=== PATIENT | female | born 1970 | race African-American/Black ===

== ENCOUNTER 2016-08-09 12:34 | Emergency (ER) | payer MEDICARE, MEDICAID ==
[~2016-08-09 12:34] MED LIST: AMBIEN10 M1 PO; AMBIEN5 MG PO; AMOXICILLIN875 M1 PO; ANTI-ITCH28 GM TP; ANUSOL OINTMENT30 G1 RC; ARTIFICIAL TEAR15 M OP; ASPERCREME TP; ASPIRIN ENTERI325 MG PO; ASPIRIN81 MG PO; ATIVAN0.5 MG PO; ATORVASTATIN CA80 M1 PO; AUGMENTIN 875-1 EAC2 PO; AZASAN100 MG PO; AZASAN75 MG PO; AZATHIOPRINE50 MG PO; BACTRIM DS TAB1 EAC2 PO; BELSOMRA; BELSOMRA10 MG PO; BENADRYL25 M3 PO; BENADRYL25 MG PO; BENTYL10 M1 PO; BENTYL20 M1 PO; BENTYL20 MG PO; BIAXIN PO; BP MED PO; BUMETANIDE1 MG PO; BUTRANS1 EAC3 TD; CALCIUM 500 +1 EAC4 PO; CALCIUM PO; CATAPRES0.1 M1 PO; CELEXA20 M1 PO; CEPHALEXIN250 M1; CIPRO500 M2 PO; CIPROFLOXACIN500 M3; CITRATE OF MAG300 ML PO; CLINDAMYCIN HC300 M2 PO; COLACE100 M1 PO; COLACE100 MG PO; COLESTID1 GM PO; COMPAZINE10 M PO; COUMADIN10 MG PO; COUMADIN7.5 MG PO; CPAP; CULTURELLE1 EAC1 PO; CVS STOOL SOFTE PO; CYCLOBENZAPRINE5 M1 PO; CYMBALTA30 M1 PO; CYTOMEL25 MCG PO; CYTOMEL5 MCG PO; DELTASONE10 MG PO; DEPAKOTE D500 MG/TA1 PO; DEPAKOTE ER500 M1 PO; DEPAKOTE ER500 MG PO; DEPAKOTE125 M1 PO; DEPAKOTE125 MG PO; DEPAKOTE500 MG PO; DIAZEPAM5 MG/5 M2 PO; DIFLUCAN150 M1 PO; DILANTIN100 MG PO; DIVALPROEX SOD PO; DOXYCYCLINE HY100 M3 PO; DURAGESIC1 EA10 TOP; DURAGESIC1 EAC4 TD; ELAVIL50 MG PO; ENDOCET1 EA PO; ENULOSE PO; EPIPEN0.3 MG/0.1 IM; ERY-TAB250 M1 PO; ESCITALOPRAM OX10 M1 PO; EVOXAC30 MG PO; FLEXERIL10 MG PO; FLEXERIL5 M1 PO; FOLIC ACID1 MG PO; FUROSEMIDE20 M1 PO; GABAPENTIN100 M1 PO; GABAPENTIN300 M1 PO; GLUCOPHAGE500 M3 PO; GLUCOPHAGE500 MG/TA1 PO; Gabapentin PO; H PO; HUMALOG100 U/ML SQ; HUMALOG100 UNIT/2 SC; HUMALOG100 UNITS/; HYDROCHLOROTH12.5 M1 PO; HYDROCHLOROTH12.5 M3 PO; HYDROCHLOROTH12.5 MG PO; HYDROCHLOROTHIA25 M1 PO; HYDROCHLOROTHIA25 MG PO; HYDROCHLOROTHIAZ1 GM; HYDROCHLOROTHIAZIDE PO; HYDROCODON-ACE1 EA16 PO; HYDROCODON-ACE1 EAC7 PO; HYDROCODON-ACE1 EAC8 PO; HYDROCODON-ACET15 M1 PO; HYDROCODONE/APA1 TAB PO; HYDROXYZINE PA100 M1 PO; IBUPROFEN400 M1 PO; IBUPROFEN800 MG PO; IMITREX100 M1 PO; IMURAN50 MG PO; K-DUR20 ME1 PO; K-DUR20 ME2 PO; KEFLEX PO; KEFLEX500 M4 PO; KEPPRA1000 M1 PO; KEPPRA250 M1 PO; KEPPRA250 MG PO; KEPPRA500 M1 PO; KEPPRA500 M3 PO; KEPPRA750 M1 PO; KLONOPIN0.5 M1 PO; LAMISIL250 MG PO; LANTUS100 U/ML SC; LANTUS100 UNITS/ SC; LEVAQUIN500 M1 PO; LEVEMIR100 UNITS/ SC; LEVOTHROID112 MCG PO; LEVOTHROID150 MC1 PO; LEVOTHROID150 MCG PO; LEVOTHROID175 MCG PO; LEVOTHROID75 MCG PO; LEVOTHYROXINE125 MCG PO; LEVOTHYROXINE150 MC3 PO; LEVOTHYROXINE175 MC2 PO; LEVOTHYROXINE25 MC3 PO; LEXAPRO10 MG PO; LIDODERM1 EACH TP; LIDODERM700 MG TOP; LIDODERM700 MG TP; LISINOPRIL-HCT1 EAC3 PO; LISINOPRIL-HCTZ1 TAB PO; LISINOPRIL10 M1 PO; LISINOPRIL10 MG PO; LISINOPRIL5 M1 PO; LOMOTIL TABLET1 TAB PO; LOPRESSOR25 MG/TA2 PO; LORTAB 7.5/5001 EA PO; LOVENOX100 MG/ SQ; LOVENOX100 MG/ML SQ; LUNESTA3 M1 PO; MACROBID 100 M100 M1 PO; MACRODANTIN100 M1 PO; MARINOL5 M1 PO; MELOXICAM15 M1 PO; METFORMIN HCL500 M2 PO; METHOTREXATE2.5 MG PO; MILK OF MA400 MG/5 M PO; MINOCYCLINE HC100 MG PO; MIRALAX17 G1 PO; MIRALAX17 G2 PO; MIRAPEX ER0.375 MG PO; MIRAPEX1 MG PO; MOTRIN800 MG PO; NEURONTIN300 M1 PO; NEURONTIN300 MG PO; NEURONTIN600 M1 PO; NITROFURANTOIN100 MG PO; NORCO 10/325 TA1 TAB PO; NORCO 5-325 TA1 EACH PO; NORCO 5/325 TAB1 TAB PO; NORCO 5/3251 TA1 PO; NORCO 5/3251 TA2 PO; NORCO 5/3251 TAB PO; NORCO 7.5/3251 TA3 PO; NORVASC10 M1 PO; NORVASC5 MG PO; NOVOLIN N100 UNIT/1 SQ; NOVOLOG FL100 UNIT/2 SC; NOVOLOG100 U/M SQ; NOVOLOG100 UNITS/ SC; NYSTATIN60 ML PO; OMEPRAZOLE20 M2 PO; OMEPRAZOLE20 M4 PO; OMEPRAZOLE40 M2 PO; OPANA ER15 M1 PO; OPANA10 M1 PO; OS-CAL 500+D TA1 TAB PO; OXYCODONE HCL15 M1 PO; OXYCODONE HCL20 M3 PO; OXYCODONE HCL5 M1 PO; OXYCODONE/APAP PO; OXYCONTIN15 M1 PO; OYSTER CALCIUM500 MG PO; PAROXETINE HCL10 M2 PO; PATCH REMOVAL; PERCOCET 10-321 EACH PO; PERCOCET 10/31 UDTAB PO; PERCOCET 5/3251 TAB PO; PERCOCET 5MG/AP1 TA1 PO; PERCOCET 5MG/AP1 TAB PO; PHENERGAN25 M1 PO; PHENERGAN25 M2 RC; PHENERGAN25 M4 RC; PHENERGAN25 MG PO; PHENERGAN25 MG/TAB PO; PHENYTOIN PO; PHENYTOIN SODI100 PO; PREDNISONE10 M1 PO; PREDNISONE10 MG PO; PREDNISONE2.5 MG PO; PREDNISONE20 M1 PO; PREDNISONE20 MG PO; PREDNISONE5 MG PO; PRILOSEC20 MG PO; PROAIR HFA8.5 GM IH; PROAIR RESPICL90 MCG INH; PROMETHAZI6.25 MG/3 PO; PROMETHAZINE HC25 M3 PO; PROMETHAZINE25 MG PO; PROTONIX20 MG PO; PROTONIX40 M1 PO; PROVENTIL HFA6.7 G1 INH; PYRIDIUM200 M2 PO; REGLAN10 MG PO; REQUIP0.25 MG PO; REQUIP2 M1 PO; RESTORIL15 MG PO; ROBAXIN-750750 M1 PO; ROCALTROL0.25 MCG PO; ROXICODONE PO; ROXICODONE5 M2 PO; SEIZURE MED; SENNA-DOCUSATE1 EAC1 PO; SENOKOT-S TABLE1 TAB PO; SEROQUEL25 MG PO; SKELAXIN800 M1 PO; SULFAMETHOXAZO473 ML PO; SYNTHROID100 MCG PO; SYNTHROID112 MCG PO; SYNTHROID150 MCG PO; SYNTHROID175 MC1 PO; TAMIFLU75 MG/CAP PO; TEGRETOL200 MG PO; TOPROL XL50 MG PO; TRAMADOL HCL200 MG PO; TRANSDERM-SCOP1 EACH TD; TUMS200 MG PO; TYLENOL #31 TA1 PO; TYLENOL EXTRA500 M1 PO; TYLENOL325 MG PO; TYLENOL500 MG PO; ULTRAM50 MG PO; VALIUM2 M1 PO; VALIUM5 M1 PO; VENTOLIN HFA18 G2 IH; VICODIN 5/500 T1 TAB PO; VIMPAT50 MG PO; VISTARIL25 M1 PO; VITAMIN D250000 UNI1 PO; XARELTO20 MG PO; XTAMPZA ER36 MG PO; ZESTORETIC 10-1 EAC1 PO; ZESTRIL10 MG PO; ZESTRIL20 M1 PO; ZESTRIL20 M3 PO; ZETIA10 M1 PO; ZITHROMAX250MG Z-PAK PO; ZOCOR20 MG PO; ZOFRAN ODT; ZOFRAN ODT4 MG PO; ZOFRAN ODT4 MG/UDTAB PO; ZOFRAN ODT8 MG PO; ZOFRAN ODT8 MG/TAB PO; ZOFRAN4 M1 PO; ZOFRAN4 M2 PO; ZOFRAN4 MG PO; ZOFRAN8 M1 PO; ZOFRAN8 MG PO; ZYRTEC10 M7 PO; ZYRTEC10 MG PO; ZYRTEC1010 PO; [UNRECOGNIZED DRUG - OTHER]; [UNRECOGNIZED DRUG - OTHER] OP; [UNRECOGNIZED DRUG - OTHER] PO; [UNRECOGNIZED DRUG - OTHER] PO
[2016-08-09 13:21] LABS: BASO % 1.9 % (0-2); BASO ABSOLUTE COUNT 0.1 tho/cmm (0.0-0.2); EOSINOPHIL ABSOLUTE COUNT 0.4 tho/cmm (0.0-0.7); HGB-HEMOGLOBIN 10.3 gm/dl (12.0-15.5); IMMATURE GRANULOCYTES ABSOLUTE 0.01 tho/cmm (0-0.03); IMMATURE GRANULOCYTES PERCENT 0.2 % (0-0.3); LYMPH % 33.4 % (20-45); LYMPH ABSOLUTE COUNT 1.9 tho/cmm (0.8-4.5); MCH (MEAN CORPUSCULAR HGB) 23.9 pg (28.0-32.0); MCHC MEAN CORPUSCULAR HGB CONC 32.2 % (32.0-36.0); MCV (MEAN CELL VOLUME) 74.2 fl (82.0-96.0); MEAN PLATELET VOLUME 8.3 cmc (9.4-12.4); MONO % 8.9 % (0-12); MONOCYTE ABSOLUTE COUNT 0.5 tho/cmm (0.0-1.2); NEUTROPHIL ABSOLUTE COUNT 2.8 tho/cmm (1.6-8.0); NEUTROPHIL-AUTOMATED 2.8 tho/cmm (1.6-8.0); NEUTROPHILS % 48.6 % (40-80); PLATELET COUNT 272 tho/cmm (150-450); RED BLOOD COUNT 4.31 mil/cmm (4.00-5.20); RED CELL DISTRIBUTION WIDTH 19.7 % (12.4-16.4); WHITE BLOOD COUNT 5.8 tho/cmm (4.0-10.0)
[2016-08-09 13:40] LABS: ANION GAP 13 mmol/L (0-20); BLOOD UREA NITROGEN 9 mg/dl (6-24); CALCIUM 8.9 mg/dl (8.5-10.5); CARBON DIOXIDE-VENOUS 24 mmol/L (22-32); CHLORIDE 108 mmol/l (96-110); CREATININE 0.74 mg/dl (0.50-1.10); POTASSIUM 3.7 mmol/L (3.7-5.1); SODIUM 141 mmol/L (135-145); eGFR VALUE FOR BLACK >60 mL/Min
[2016-08-09 13:43] LABS: GLUCOSE 70 mg/dL (70-110)
[2016-08-09] MEDS ORDERED: TOPROL XL50 M1 PO (14:03)
[2016-08-09] MEDS ORDERED: ZOFRAN4 M2 PO (14:03)
[2016-08-09] MEDS ORDERED: KEPPRA100 MG/1 M PO (14:04)
[2016-08-09] MEDS ORDERED: NEURONTIN250 MG/51 PO (14:04)
[2016-08-09] MEDS ORDERED: PROAIR HFA8.5 GM INH (14:04)
[2016-08-09] MEDS ORDERED: LOPERAMIDE2 M2 PO (14:05)
[2016-08-09] MEDS ORDERED: OXYCODONE HCL15 M1 PO (14:06)
[2016-08-09] MEDS ORDERED: NORTRIPTYL10 MG/5 ML PO (14:07)
[2016-08-09] MEDS ORDERED: DIAZEPAM 1 MG/ML PO (14:08)
[2016-08-09] MEDS ORDERED: HUMALOG100 UNIT/2 SC (14:28)
[2016-08-09] MEDS ORDERED: ZYRTEC10 M7 PO (14:29)
[2016-08-09] MEDS ORDERED: CATAPRES0.3 M1 PO (14:47)
[2017-01-20] MEDS ORDERED: VITAMIN D250000 UNI1 PO (13:45)
[2017-01-20] MEDS ORDERED: NORVASC10 M2 PO (13:45)
[2017-01-20] MEDS ORDERED: MARINOL5 M1 PO (13:45)
[2017-01-20] MEDS ORDERED: MIRTAZAPINE7.5 M1 PO (13:46)
== END 2016-08-09 15:52 ==
LOC: EDMED 12:34
PROVIDERS: Emergency Medicine
DX: R07.89 Other chest pain (principal); R10.9 Unspecified abdominal pain; G89.29 Other chronic pain; E11.9 Type 2 diabetes mellitus without complications; I10 Essential (primary) hypertension; E78.5 Hyperlipidemia, unspecified; F41.9 Anxiety disorder, unspecified; R11.2 Nausea with vomiting, unspecified; F32.9 Major depressive disorder, single episode, unspecified; Z79.899 Other long term (current) drug therapy; Z79.51 Long term (current) use of inhaled steroids
CPT/HCPCS: J1170; J1200; J2405; J7030

== ENCOUNTER 2016-08-27 09:23 | Emergency (ER) | payer MEDICARE, MEDICAID ==
[~2016-08-27 09:23] MED LIST changes: +CATAPRES0.3 M1 PO; +DIAZEPAM 1 MG/ML PO; +KEPPRA100 MG/1 M PO; +LOPERAMIDE2 M2 PO; +NEURONTIN250 MG/51 PO; +NORTRIPTYL10 MG/5 ML PO; +PROAIR HFA8.5 GM INH; +TOPROL XL50 M1 PO
[2016-08-27 10:26] LABS: BASO % 1.9 % (0-2); BASO ABSOLUTE COUNT 0.1 tho/cmm (0.0-0.2); EOS % 9.7 % (0-7); EOSINOPHIL ABSOLUTE COUNT 0.6 tho/cmm (0.0-0.7); HCT-HEMATOCRIT 34.4 % (34.0-49.0); HGB-HEMOGLOBIN 10.9 gm/dl (12.0-15.5); LYMPH % 29.1 % (20-45); LYMPH ABSOLUTE COUNT 1.8 tho/cmm (0.8-4.5); MCH (MEAN CORPUSCULAR HGB) 23.3 pg (28.0-32.0); MCHC MEAN CORPUSCULAR HGB CONC 31.7 % (32.0-36.0); MCV (MEAN CELL VOLUME) 73.5 fl (82.0-96.0); MEAN PLATELET VOLUME 8.4 cmc (9.4-12.4); MONO % 9.1 % (0-12); MONOCYTE ABSOLUTE COUNT 0.6 tho/cmm (0.0-1.2); NEUTROPHIL ABSOLUTE COUNT 3.1 tho/cmm (1.6-8.0); NEUTROPHIL-AUTOMATED 3.1 tho/cmm (1.6-8.0); NEUTROPHILS % 50.2 % (40-80); PLATELET COUNT 316 tho/cmm (150-450); RED BLOOD COUNT 4.68 mil/cmm (4.00-5.20); RED CELL DISTRIBUTION WIDTH 19.5 % (12.4-16.4); WHITE BLOOD COUNT 6.2 tho/cmm (4.0-10.0)
[2016-08-27 10:48] LABS: ALB/GLOB RATIO 0.7 (0.8-2.0); ALKALINE PHOSPHATASE 180 U/L (33-138); ALT/SGPT 20 U/L (12-78); ANION GAP 11 mmol/L (0-20); AST/SGOT 21 U/L (10-40); BILIRUBIN,DIRECT <0.1 mg/dl (0.0-0.3); BILIRUBIN,INDIRECT 0.2 mg/dL (0.0-1.0); BILIRUBIN,TOTAL 0.3 mg/dl (0-1.5); BLOOD UREA NITROGEN 8 mg/dl (6-24); CARBON DIOXIDE-VENOUS 28 mmol/L (22-32); CHLORIDE 104 mmol/l (96-110); CREATININE 0.85 mg/dl (0.50-1.10); GLUCOSE 87 mg/dL (70-110); LIPASE 86 U/L (73-393); POTASSIUM 3.5 mmol/L (3.7-5.1); SODIUM 139 mmol/L (135-145); eGFR VALUE FOR BLACK >90 mL/Min
[2017-01-20] MEDS ORDERED: VITAMIN D250000 UNI1 PO (13:45)
[2017-01-20] MEDS ORDERED: MARINOL5 M1 PO (13:45)
[2017-01-20] MEDS ORDERED: NORVASC10 M2 PO (13:45)
[2017-01-20] MEDS ORDERED: MIRTAZAPINE7.5 M1 PO (13:46)
== END 2016-08-27 13:18 ==
LOC: EDMED 09:23
PROVIDERS: Emergency Medicine
DX: I10 Essential (primary) hypertension (principal); R07.9 Chest pain, unspecified; R10.9 Unspecified abdominal pain; E11.9 Type 2 diabetes mellitus without complications; E03.9 Hypothyroidism, unspecified; Z86.711 Personal history of pulmonary embolism; Z90.710 Acquired absence of both cervix and uterus; Z90.49 Acquired absence of other specified parts of digestive tract; Z90.89 Acquired absence of other organs; Z79.4 Long term (current) use of insulin; Z79.890 Hormone replacement therapy; Z79.899 Other long term (current) drug therapy; Z87.891 Personal history of nicotine dependence
CPT/HCPCS: J1885; J2405

== ENCOUNTER 2016-09-11 11:34 | Emergency (ER) | payer MEDICARE, MEDICAID ==
[2016-09-11 12:25] LABS: BASO % 0.9 % (0-2); BASO ABSOLUTE COUNT 0.1 tho/cmm (0.0-0.2); EOS % 6.4 % (0-7); EOSINOPHIL ABSOLUTE COUNT 0.4 tho/cmm (0.0-0.7); HCT-HEMATOCRIT 32.9 % (34.0-49.0); HGB-HEMOGLOBIN 10.7 gm/dl (12.0-15.5); IMMATURE GRANULOCYTES ABSOLUTE 0.01 tho/cmm (0-0.03); IMMATURE GRANULOCYTES PERCENT 0.2 % (0-0.3); LYMPH % 29.6 % (20-45); LYMPH ABSOLUTE COUNT 1.7 tho/cmm (0.8-4.5); MCH (MEAN CORPUSCULAR HGB) 23.8 pg (28.0-32.0); MCHC MEAN CORPUSCULAR HGB CONC 32.5 % (32.0-36.0); MCV (MEAN CELL VOLUME) 73.1 fl (82.0-96.0); MEAN PLATELET VOLUME 8.1 cmc (9.4-12.4); MONO % 6.8 % (0-12); MONOCYTE ABSOLUTE COUNT 0.4 tho/cmm (0.0-1.2); NEUTROPHIL ABSOLUTE COUNT 3.2 tho/cmm (1.6-8.0); NEUTROPHIL-AUTOMATED 3.2 tho/cmm (1.6-8.0); NEUTROPHILS % 56.1 % (40-80); PLATELET COUNT 235 tho/cmm (150-450); WHITE BLOOD COUNT 5.8 tho/cmm (4.0-10.0)
[2016-09-11 12:59] LABS: ALB/GLOB RATIO 0.8 (0.8-2.0); ALKALINE PHOSPHATASE 200 U/L (33-138); ALT/SGPT 27 U/L (12-78); ANION GAP 13 mmol/L (0-20); AST/SGOT 22 U/L (10-40); BILIRUBIN,TOTAL 0.3 mg/dl (0-1.5); BLOOD UREA NITROGEN 6 mg/dl (6-24); CALCIUM 8.8 mg/dl (8.5-10.5); CARBON DIOXIDE-VENOUS 26 mmol/L (22-32); CHLORIDE 105 mmol/l (96-110); GLUCOSE 93 mg/dL (70-110); LIPASE 104 U/L (73-393); POTASSIUM 3.6 mmol/L (3.7-5.1); SODIUM 140 mmol/L (135-145); eGFR VALUE FOR BLACK >90 mL/Min
[2016-09-11] MEDS ORDERED: ZOFRAN ODT4 MG PO (13:46)
[2017-01-20] MEDS ORDERED: MARINOL5 M1 PO (13:45)
[2017-01-20] MEDS ORDERED: VITAMIN D250000 UNI1 PO (13:45)
[2017-01-20] MEDS ORDERED: NORVASC10 M2 PO (13:45)
[2017-01-20] MEDS ORDERED: MIRTAZAPINE7.5 M1 PO (13:46)
== END 2016-09-11 14:25 ==
LOC: EDMED 11:34
PROVIDERS: Emergency Medicine
DX: D86.9 Sarcoidosis, unspecified (principal); R11.2 Nausea with vomiting, unspecified; R19.7 Diarrhea, unspecified; E11.9 Type 2 diabetes mellitus without complications; I10 Essential (primary) hypertension; Z90.89 Acquired absence of other organs; Z90.49 Acquired absence of other specified parts of digestive tract; Z98.890 Other specified postprocedural states; Z79.4 Long term (current) use of insulin; Z79.899 Other long term (current) drug therapy
CPT/HCPCS: J1200; J2405; J7030

== ENCOUNTER 2016-09-17 11:30 | Emergency (ER) | payer MEDICARE, MEDICAID ==
[2016-09-17] MEDS ORDERED: FLUCONAZOLE150 M2 PO (12:02)
[2016-09-17] MEDS ORDERED: VITAMIN D250000 UNI1 PO (12:12)
[2016-09-17] MEDS ORDERED: DICYCLOMINE HCL20 M1 PO (12:13)
[2016-09-17] MEDS ORDERED: HUMALOG100 UNIT/2 SC (12:14)
[2016-09-17] MEDS ORDERED: PRINIVIL20 M1 PO (12:14)
[2016-09-17 12:25] LABS: BASO % 0.7 % (0-2); BASO ABSOLUTE COUNT 0.1 tho/cmm (0.0-0.2); EOS % 4.3 % (0-7); EOSINOPHIL ABSOLUTE COUNT 0.4 tho/cmm (0.0-0.7); HCT-HEMATOCRIT 32.3 % (34.0-49.0); HGB-HEMOGLOBIN 10.4 gm/dl (12.0-15.5); IMMATURE GRANULOCYTES ABSOLUTE 0.02 tho/cmm (0-0.03); IMMATURE GRANULOCYTES PERCENT 0.2 % (0-0.3); LYMPH % 16.3 % (20-45); LYMPH ABSOLUTE COUNT 1.7 tho/cmm (0.8-4.5); MCH (MEAN CORPUSCULAR HGB) 23.7 pg (28.0-32.0); MCHC MEAN CORPUSCULAR HGB CONC 32.2 % (32.0-36.0); MCV (MEAN CELL VOLUME) 73.6 fl (82.0-96.0); MEAN PLATELET VOLUME 8.3 cmc (9.4-12.4); MONO % 6.4 % (0-12); MONOCYTE ABSOLUTE COUNT 0.7 tho/cmm (0.0-1.2); NEUTROPHIL ABSOLUTE COUNT 7.4 tho/cmm (1.6-8.0); NEUTROPHIL-AUTOMATED 7.4 tho/cmm (1.6-8.0); NEUTROPHILS % 72.1 % (40-80); PLATELET COUNT 300 tho/cmm (150-450); RED BLOOD COUNT 4.39 mil/cmm (4.00-5.20); WHITE BLOOD COUNT 10.2 tho/cmm (4.0-10.0)
[2016-09-17 12:48] LABS: ALB/GLOB RATIO 0.9 (0.8-2.0); ALBUMIN 3.2 g/dl (3.5-5.0); ALKALINE PHOSPHATASE 167 U/L (33-138); ALT/SGPT 18 U/L (12-78); ANION GAP 11 mmol/L (0-20); AST/SGOT 18 U/L (10-40); BILIRUBIN,TOTAL 0.3 mg/dl (0-1.5); BLOOD UREA NITROGEN 9 mg/dl (6-24); CALCIUM 8.5 mg/dl (8.5-10.5); CARBON DIOXIDE-VENOUS 26 mmol/L (22-32); CHLORIDE 108 mmol/l (96-110); CREATININE 0.89 mg/dl (0.50-1.10); GLUCOSE 91 mg/dL (70-110); POTASSIUM 3.5 mmol/L (3.7-5.1); SODIUM 141 mmol/L (135-145); eGFR VALUE FOR BLACK 89 mL/Min
[2016-09-17 13:03] LABS: PROCALCITONIN <0.05 ng/ml (0.05-0.09)
[2016-09-17 14:15] LABS: URINE APPEARANCE CLEAR; URINE BILIRUBIN NEGATIVE (NEG); URINE BLOOD NEGATIVE (NEG); URINE COLOR YELLOW; URINE GLUCOSE (UA) NEGATIVE (NEG); URINE KETONE NEGATIVE (NEG); URINE LEUKOCYTE ESTERASE NEGATIVE (NEG); URINE NITRITE NEGATIVE (NEG); URINE PROTEIN NEGATIVE (NEG); URINE SPECIFIC GRAVITY 1.015 (1.003-1.030)
[2017-01-20] MEDS ORDERED: VITAMIN D250000 UNI1 PO (13:45)
[2017-01-20] MEDS ORDERED: NORVASC10 M2 PO (13:45)
[2017-01-20] MEDS ORDERED: MARINOL5 M1 PO (13:45)
[2017-01-20] MEDS ORDERED: MIRTAZAPINE7.5 M1 PO (13:46)
== END 2016-09-17 14:24 ==
LOC: EDMED 11:30
PROVIDERS: Emergency Medicine
DX: R07.89 Other chest pain (principal); R10.9 Unspecified abdominal pain; G89.29 Other chronic pain; B34.9 Viral infection, unspecified; I10 Essential (primary) hypertension; E07.9 Disorder of thyroid, unspecified; F32.9 Major depressive disorder, single episode, unspecified; G40.909 Epilepsy, unspecified, not intractable, without status epilepticus; K21.9 Gastro-esophageal reflux disease without esophagitis; Z87.442 Personal history of urinary calculi; Z90.710 Acquired absence of both cervix and uterus; Z90.89 Acquired absence of other organs; Z86.711 Personal history of pulmonary embolism; Z79.4 Long term (current) use of insulin; Z79.890 Hormone replacement therapy; Z79.899 Other long term (current) drug therapy; Z87.891 Personal history of nicotine dependence
CPT/HCPCS: J2405; J7030

== ENCOUNTER 2016-10-03 14:32 | Emergency (ER) | payer MEDICARE, MEDICAID ==
[~2016-10-03 14:32] MED LIST changes: +DICYCLOMINE HCL20 M1 PO; +FLUCONAZOLE150 M2 PO; +PRINIVIL20 M1 PO
[2016-10-03 15:28] LABS: BASO % 1.2 % (0-2); BASO ABSOLUTE COUNT 0.1 tho/cmm (0.0-0.2); EOS % 7.1 % (0-7); EOSINOPHIL ABSOLUTE COUNT 0.5 tho/cmm (0.0-0.7); HGB-HEMOGLOBIN 10.8 gm/dl (12.0-15.5); IMMATURE GRANULOCYTES ABSOLUTE 0.01 tho/cmm (0-0.03); IMMATURE GRANULOCYTES PERCENT 0.2 % (0-0.3); LYMPH % 25.7 % (20-45); LYMPH ABSOLUTE COUNT 1.7 tho/cmm (0.8-4.5); MCH (MEAN CORPUSCULAR HGB) 23.7 pg (28.0-32.0); MCHC MEAN CORPUSCULAR HGB CONC 32.7 % (32.0-36.0); MCV (MEAN CELL VOLUME) 72.4 fl (82.0-96.0); MEAN PLATELET VOLUME 8.4 cmc (9.4-12.4); MONO % 7.8 % (0-12); MONOCYTE ABSOLUTE COUNT 0.5 tho/cmm (0.0-1.2); NEUTROPHIL ABSOLUTE COUNT 3.8 tho/cmm (1.6-8.0); NEUTROPHIL-AUTOMATED 3.8 tho/cmm (1.6-8.0); PLATELET COUNT 315 tho/cmm (150-450); RED BLOOD COUNT 4.56 mil/cmm (4.00-5.20); RED CELL DISTRIBUTION WIDTH 18.6 % (12.4-16.4); WHITE BLOOD COUNT 6.6 tho/cmm (4.0-10.0)
[2016-10-03 15:45] LABS: ANION GAP 12 mmol/L (0-20); BLOOD UREA NITROGEN 8 mg/dl (6-24); CALCIUM 9.1 mg/dl (8.5-10.5); CARBON DIOXIDE-VENOUS 27 mmol/L (22-32); CHLORIDE 105 mmol/l (96-110); CREATININE 0.68 mg/dl (0.50-1.10); GLUCOSE 94 mg/dL (70-110); SODIUM 141 mmol/L (135-145); eGFR VALUE FOR BLACK >90 mL/Min
[2017-01-20] MEDS ORDERED: VITAMIN D250000 UNI1 PO (13:45)
[2017-01-20] MEDS ORDERED: MARINOL5 M1 PO (13:45)
[2017-01-20] MEDS ORDERED: NORVASC10 M2 PO (13:45)
[2017-01-20] MEDS ORDERED: MIRTAZAPINE7.5 M1 PO (13:46)
== END 2016-10-03 17:15 ==
LOC: EDMED 14:32
PROVIDERS: Nurse Practitioner Family
DX: R07.89 Other chest pain (principal); E11.9 Type 2 diabetes mellitus without complications; Z79.4 Long term (current) use of insulin; I10 Essential (primary) hypertension; Z90.49 Acquired absence of other specified parts of digestive tract
CPT/HCPCS: J1200; J2405; J2930; J7030; Q9967

== ENCOUNTER 2016-11-04 14:29 | Emergency (ER) | payer MEDICARE, MEDICAID ==
[2016-11-04] MEDS ORDERED: IMURAN50 M1 PO (14:44)
[2016-11-04] MEDS ORDERED: PREDNISONE10 M1 PO (14:44)
[2016-11-04] MEDS ORDERED: TRANSDERM-SCOP1 EACH TD (14:45)
[2016-11-04] MEDS ORDERED: ZOFRAN ODT8 MG PO (14:46)
[2016-11-04] MEDS ORDERED: IPRAT-ALBUT 0.5-3 ML NEB (14:47)
[2016-11-04] MEDS ORDERED: [UNRECOGNIZED DRUG - OTHER] (15:22)
[2016-11-04 15:42] LABS: URINE BILIRUBIN NEGATIVE (NEG); URINE BLOOD NEGATIVE (NEG); URINE GLUCOSE (UA) NEGATIVE (NEG); URINE KETONE NEGATIVE (NEG); URINE LEUKOCYTE ESTERASE POSITIVE (NEG); URINE NITRITE NEGATIVE (NEG); URINE PROTEIN NEGATIVE (NEG)
[2016-11-04 15:44] LABS: URINE APPEARANCE CLEAR; URINE COLOR PALE YELLOW
[2016-11-04 15:51] LABS: URINE BACTERIA 1+
[2016-11-04 15:53] LABS: URINE RBC 0-1 /[HPF] (0-5)
[2016-11-04 17:01] LABS: BASO % 1.6 % (0-2); BASO ABSOLUTE COUNT 0.1 tho/cmm (0.0-0.2); EOS % 7.2 % (0-7); EOSINOPHIL ABSOLUTE COUNT 0.4 tho/cmm (0.0-0.7); HCT-HEMATOCRIT 36.2 % (34.0-49.0); HGB-HEMOGLOBIN 12.1 gm/dl (12.0-15.5); IMMATURE GRANULOCYTES ABSOLUTE 0.07 tho/cmm (0-0.03); IMMATURE GRANULOCYTES PERCENT 1.2 % (0-0.3); LYMPH % 37.6 % (20-45); LYMPH ABSOLUTE COUNT 2.2 tho/cmm (0.8-4.5); MCH (MEAN CORPUSCULAR HGB) 24.3 pg (28.0-32.0); MCHC MEAN CORPUSCULAR HGB CONC 33.4 % (32.0-36.0); MCV (MEAN CELL VOLUME) 72.8 fl (82.0-96.0); MEAN PLATELET VOLUME 8.7 cmc (9.4-12.4); MONO % 8.7 % (0-12); MONOCYTE ABSOLUTE COUNT 0.5 tho/cmm (0.0-1.2); NEUTROPHIL ABSOLUTE COUNT 2.5 tho/cmm (1.6-8.0); NEUTROPHIL-AUTOMATED 2.5 tho/cmm (1.6-8.0); NEUTROPHILS % 43.7 % (40-80); PLATELET COUNT 228 tho/cmm (150-450); RED BLOOD COUNT 4.97 mil/cmm (4.00-5.20); RED CELL DISTRIBUTION WIDTH 18.6 % (12.4-16.4); WHITE BLOOD COUNT 5.7 tho/cmm (4.0-10.0)
[2016-11-04 17:59] LABS: ALB/GLOB RATIO 0.8 (0.8-2.0); ALBUMIN 3.3 g/dl (3.5-5.0); ALKALINE PHOSPHATASE 168 U/L (33-138); ALT/SGPT 30 U/L (12-78); BILIRUBIN,TOTAL 0.4 mg/dl (0-1.5); BLOOD UREA NITROGEN 9 mg/dl (6-24); CALCIUM 8.8 mg/dl (8.5-10.5); CARBON DIOXIDE-VENOUS 19 mmol/L (22-32); CHLORIDE 112 mmol/l (96-110); CREATININE 0.73 mg/dl (0.50-1.10); GLUCOSE 80 mg/dL (70-110); LIPASE 103 U/L (73-393); SODIUM 142 mmol/L (135-145); eGFR VALUE FOR BLACK >90 mL/Min
[2016-11-04] MEDS ORDERED: MACROBID 100 M100 M1 PO (18:03)
[2016-11-04 18:09] LABS: ANION GAP 16 mmol/L (0-20); AST/SGOT 32 U/L (10-40); POTASSIUM 4.9 mmol/L (3.7-5.1)
[2017-01-20] MEDS ORDERED: VITAMIN D250000 UNI1 PO (13:45)
[2017-01-20] MEDS ORDERED: MARINOL5 M1 PO (13:45)
[2017-01-20] MEDS ORDERED: NORVASC10 M2 PO (13:45)
[2017-01-20] MEDS ORDERED: MIRTAZAPINE7.5 M1 PO (13:46)
== END 2016-11-04 18:19 ==
LOC: EDMED 14:29
PROVIDERS: Emergency Medicine
DX: N39.0 Urinary tract infection, site not specified (principal); Z87.09 Personal history of other diseases of the respiratory system; E11.9 Type 2 diabetes mellitus without complications; I10 Essential (primary) hypertension; Z79.4 Long term (current) use of insulin; Z79.82 Long term (current) use of aspirin; Z79.899 Other long term (current) drug therapy
CPT/HCPCS: J2060

== ENCOUNTER 2016-11-08 20:19 | Emergency (ER) | payer MEDICARE, MEDICAID ==
[~2016-11-08 20:19] MED LIST changes: +IMURAN50 M1 PO; +IPRAT-ALBUT 0.5-3 ML NEB; +[UNRECOGNIZED DRUG - OTHER]
[2016-11-08 23:59] LABS: BASO % 1.6 % (0-2); BASO ABSOLUTE COUNT 0.1 tho/cmm (0.0-0.2); EOS % 5.6 % (0-7); EOSINOPHIL ABSOLUTE COUNT 0.4 tho/cmm (0.0-0.7); HCT-HEMATOCRIT 33.9 % (34.0-49.0); HGB-HEMOGLOBIN 11.2 gm/dl (12.0-15.5); LYMPH % 32.2 % (20-45); MCV (MEAN CELL VOLUME) 72.6 fl (82.0-96.0); MEAN PLATELET VOLUME 8.1 cmc (9.4-12.4); MONO % 6.8 % (0-12); MONOCYTE ABSOLUTE COUNT 0.4 tho/cmm (0.0-1.2); NEUTROPHIL ABSOLUTE COUNT 3.4 tho/cmm (1.6-8.0); NEUTROPHIL-AUTOMATED 3.4 tho/cmm (1.6-8.0); NEUTROPHILS % 53.8 % (40-80); PLATELET COUNT 232 tho/cmm (150-450); RED BLOOD COUNT 4.67 mil/cmm (4.00-5.20); WHITE BLOOD COUNT 6.3 tho/cmm (4.0-10.0)
[2016-11-09 00:16] LABS: ALB/GLOB RATIO 0.8 (0.8-2.0); ALBUMIN 2.9 g/dl (3.5-5.0); ALKALINE PHOSPHATASE 126 U/L (33-138); ALT/SGPT 21 U/L (12-78); BILIRUBIN,TOTAL 0.3 mg/dl (0-1.5); BLOOD UREA NITROGEN 8 mg/dl (6-24); CALCIUM 8.1 mg/dl (8.5-10.5); CARBON DIOXIDE-VENOUS 20 mmol/L (22-32); CHLORIDE 109 mmol/l (96-110); CREATININE 0.68 mg/dl (0.50-1.10); GLUCOSE 110 mg/dL (70-110); LIPASE 75 U/L (73-393); SODIUM 140 mmol/L (135-145); eGFR VALUE FOR BLACK >90 mL/Min
[2016-11-09 00:26] LABS: ANION GAP 14 mmol/L (0-20); AST/SGOT 20 U/L (10-40)
[2016-11-09 00:27] LABS: POTASSIUM 3.3 mmol/L (3.7-5.1)
[2016-11-10] MEDS ORDERED: ZOFRAN4 M2 PO (22:29)
[2017-01-20] MEDS ORDERED: MARINOL5 M1 PO (13:45)
[2017-01-20] MEDS ORDERED: NORVASC10 M2 PO (13:45)
[2017-01-20] MEDS ORDERED: VITAMIN D250000 UNI1 PO (13:45)
[2017-01-20] MEDS ORDERED: MIRTAZAPINE7.5 M1 PO (13:46)
== END 2016-11-09 00:52 ==
LOC: EDMED 20:19
PROVIDERS: Emergency Medicine
DX: R11.10 Vomiting, unspecified (principal); E11.9 Type 2 diabetes mellitus without complications; I10 Essential (primary) hypertension; K21.9 Gastro-esophageal reflux disease without esophagitis; E03.9 Hypothyroidism, unspecified; Z79.4 Long term (current) use of insulin; Z88.8 Allergy status to other drugs, medicaments and biological substances
CPT/HCPCS: J2270; J2405; J7030

== ENCOUNTER 2016-11-10 20:18 | Emergency (ER) | payer MEDICARE, MEDICAID ==
[2016-11-10 21:31] LABS: BASO % 1.8 % (0-2); BASO ABSOLUTE COUNT 0.1 tho/cmm (0.0-0.2); EOS % 5.5 % (0-7); EOSINOPHIL ABSOLUTE COUNT 0.4 tho/cmm (0.0-0.7); HCT-HEMATOCRIT 35.8 % (34.0-49.0); HGB-HEMOGLOBIN 11.8 gm/dl (12.0-15.5); IMMATURE GRANULOCYTES ABSOLUTE 0.05 tho/cmm (0-0.03); IMMATURE GRANULOCYTES PERCENT 0.7 % (0-0.3); LYMPH % 35.2 % (20-45); LYMPH ABSOLUTE COUNT 2.5 tho/cmm (0.8-4.5); MCH (MEAN CORPUSCULAR HGB) 24.1 pg (28.0-32.0); MCV (MEAN CELL VOLUME) 73.2 fl (82.0-96.0); MEAN PLATELET VOLUME 8.4 cmc (9.4-12.4); MONO % 8.8 % (0-12); MONOCYTE ABSOLUTE COUNT 0.6 tho/cmm (0.0-1.2); NEUTROPHIL ABSOLUTE COUNT 3.4 tho/cmm (1.6-8.0); NEUTROPHIL-AUTOMATED 3.4 tho/cmm (1.6-8.0); PLATELET COUNT 246 tho/cmm (150-450); RED BLOOD COUNT 4.89 mil/cmm (4.00-5.20); RED CELL DISTRIBUTION WIDTH 18.9 % (12.4-16.4); WHITE BLOOD COUNT 7.1 tho/cmm (4.0-10.0)
[2016-11-10 21:43] LABS: ANION GAP 13 mmol/L (0-20); BLOOD UREA NITROGEN 10 mg/dl (6-24); CALCIUM 8.8 mg/dl (8.5-10.5); CARBON DIOXIDE-VENOUS 25 mmol/L (22-32); CHLORIDE 110 mmol/l (96-110); GLUCOSE 126 mg/dL (70-110); SODIUM 144 mmol/L (135-145); eGFR VALUE FOR BLACK >90 mL/Min
[2016-11-10] MEDS ORDERED: ZOFRAN4 M2 PO (22:29)
[2017-01-20] MEDS ORDERED: VITAMIN D250000 UNI1 PO (13:45)
[2017-01-20] MEDS ORDERED: MARINOL5 M1 PO (13:45)
[2017-01-20] MEDS ORDERED: NORVASC10 M2 PO (13:45)
[2017-01-20] MEDS ORDERED: MIRTAZAPINE7.5 M1 PO (13:46)
== END 2016-11-10 23:07 ==
LOC: EDMED 20:18
PROVIDERS: Emergency Medicine
PROC: 4A0D7LZ Measurement of Urinary Volume, Via Natural or Artificial Opening (ICD-10-PCS; principal; 2016-11-10)
DX: R56.9 Unspecified convulsions (principal); R11.10 Vomiting, unspecified; E11.9 Type 2 diabetes mellitus without complications; I10 Essential (primary) hypertension; Z86.711 Personal history of pulmonary embolism; Z90.89 Acquired absence of other organs; Z98.890 Other specified postprocedural states; Z87.891 Personal history of nicotine dependence; Z79.01 Long term (current) use of anticoagulants; Z79.82 Long term (current) use of aspirin; Z79.899 Other long term (current) drug therapy

== ENCOUNTER 2016-11-25 07:55 | Emergency (ER) | payer MEDICARE, MEDICAID ==
[2017-01-20] MEDS ORDERED: MARINOL5 M1 PO (13:45)
[2017-01-20] MEDS ORDERED: NORVASC10 M2 PO (13:45)
[2017-01-20] MEDS ORDERED: VITAMIN D250000 UNI1 PO (13:45)
[2017-01-20] MEDS ORDERED: MIRTAZAPINE7.5 M1 PO (13:46)
== END 2016-11-25 08:30 ==
LOC: EDMED 07:55
DX: F43.0 Acute stress reaction (principal); E11.9 Type 2 diabetes mellitus without complications; I10 Essential (primary) hypertension; Z90.49 Acquired absence of other specified parts of digestive tract; Z90.710 Acquired absence of both cervix and uterus; Z98.890 Other specified postprocedural states; Z87.891 Personal history of nicotine dependence; Z79.4 Long term (current) use of insulin; Z79.899 Other long term (current) drug therapy

== ENCOUNTER 2016-12-13 16:10 | Emergency (ER) | payer MEDICARE, MEDICAID ==
[2017-01-20] MEDS ORDERED: NORVASC10 M2 PO (13:45)
[2017-01-20] MEDS ORDERED: VITAMIN D250000 UNI1 PO (13:45)
[2017-01-20] MEDS ORDERED: MARINOL5 M1 PO (13:45)
[2017-01-20] MEDS ORDERED: MIRTAZAPINE7.5 M1 PO (13:46)
== END 2016-12-13 17:52 | disposition left against medical advice (07) ==
LOC: EDMED 16:10
DX: Z53.21 Procedure and treatment not carried out due to patient leaving prior to being seen by health care provider (principal)

== ENCOUNTER 2016-12-17 15:35 | Emergency (ER) | payer MEDICARE, MEDICAID ==
[2016-12-17] MEDS ORDERED: METHOTREXA25 MG/110 SC (15:48)
[2016-12-17 16:43] LABS: URINE BILIRUBIN NEGATIVE (NEG); URINE BLOOD NEGATIVE (NEG); URINE GLUCOSE (UA) NEGATIVE (NEG); URINE KETONE NEGATIVE (NEG); URINE LEUKOCYTE ESTERASE POSITIVE (NEG); URINE NITRITE NEGATIVE (NEG); URINE PROTEIN NEGATIVE (NEG)
[2016-12-17 16:45] LABS: URINE APPEARANCE CLEAR; URINE COLOR YELLOW
[2016-12-17 16:46] LABS: BASO % 1.8 % (0-2); BASO ABSOLUTE COUNT 0.1 tho/cmm (0.0-0.2); EOS % 6.3 % (0-7); EOSINOPHIL ABSOLUTE COUNT 0.3 tho/cmm (0.0-0.7); HCT-HEMATOCRIT 34.1 % (34.0-49.0); HGB-HEMOGLOBIN 11.2 gm/dl (12.0-15.5); IMMATURE GRANULOCYTES ABSOLUTE 0.12 tho/cmm (0-0.03); IMMATURE GRANULOCYTES PERCENT 2.4 % (0-0.3); LYMPH % 35.6 % (20-45); LYMPH ABSOLUTE COUNT 1.8 tho/cmm (0.8-4.5); MCH (MEAN CORPUSCULAR HGB) 25.5 pg (28.0-32.0); MCHC MEAN CORPUSCULAR HGB CONC 32.8 % (32.0-36.0); MCV (MEAN CELL VOLUME) 77.5 fl (82.0-96.0); MEAN PLATELET VOLUME 8.8 cmc (9.4-12.4); MONO % 1.8 % (0-12); MONOCYTE ABSOLUTE COUNT 0.1 tho/cmm (0.0-1.2); NEUTROPHIL ABSOLUTE COUNT 2.7 tho/cmm (1.6-8.0); NEUTROPHIL-AUTOMATED 2.7 tho/cmm (1.6-8.0); NEUTROPHILS % 52.1 % (40-80); PLATELET COUNT 165 tho/cmm (150-450); RED CELL DISTRIBUTION WIDTH 22.5 % (12.4-16.4); WHITE BLOOD COUNT 5.1 tho/cmm (4.0-10.0)
[2016-12-17 16:50] LABS: URINE RBC 0 /[HPF] (0-5)
[2016-12-17 17:07] LABS: ANION GAP 10 mmol/L (0-20); BLOOD UREA NITROGEN 9 mg/dl (6-24); CALCIUM 8.4 mg/dl (8.5-10.5); CARBON DIOXIDE-VENOUS 26 mmol/L (22-32); CHLORIDE 109 mmol/l (96-110); CREATININE 0.75 mg/dl (0.50-1.10); GLUCOSE 93 mg/dL (70-110); SODIUM 141 mmol/L (135-145); eGFR VALUE FOR BLACK >90 mL/Min
[2016-12-17 17:29] LABS: POTASSIUM 4.2 mmol/L (3.7-5.1)
[2017-01-20] MEDS ORDERED: MARINOL5 M1 PO (13:45)
[2017-01-20] MEDS ORDERED: NORVASC10 M2 PO (13:45)
[2017-01-20] MEDS ORDERED: VITAMIN D250000 UNI1 PO (13:45)
[2017-01-20] MEDS ORDERED: MIRTAZAPINE7.5 M1 PO (13:46)
== END 2016-12-17 17:45 ==
LOC: EDMED 15:35
PROVIDERS: Emergency Medicine
DX: R07.89 Other chest pain (principal); M54.9 Dorsalgia, unspecified; E66.01 Morbid (severe) obesity due to excess calories; K21.9 Gastro-esophageal reflux disease without esophagitis; I10 Essential (primary) hypertension; E10.43 Type 1 diabetes mellitus with diabetic autonomic (poly)neuropathy; K31.84 Gastroparesis; K76.9 Liver disease, unspecified; F41.9 Anxiety disorder, unspecified; Z86.711 Personal history of pulmonary embolism; Z98.890 Other specified postprocedural states; Z87.442 Personal history of urinary calculi; Z87.891 Personal history of nicotine dependence; Z79.890 Hormone replacement therapy; Z79.84 Long term (current) use of oral hypoglycemic drugs; Z79.899 Other long term (current) drug therapy